=== PATIENT | male | born 1970 | race African-American/Black ===

== ENCOUNTER 2020-12-24 12:15 | Inpatient (IN) ==
[2020-12-24] MEDS ORDERED: SODIUM CHLORIDE 0.9% 1,000 ML IV STA (12:35)
[2020-12-24] MEDS ORDERED: HYDROmorphone 2 MG/1 ML VIAL IV STA (13:08)
[2020-12-24] MEDS ORDERED: ONDANSETRON 4 MG/2 ML VIAL IV ONE (13:08)
[2020-12-24] MEDS ORDERED: HYDROmorphone 2 MG/1 ML VIAL ONE (13:09)
[2020-12-24] MEDS ORDERED: ONDANSETRON 4 MG/2 ML VIAL ONE (13:09)
[2020-12-24] MEDS ORDERED: ONDANSETRON 4 MG/2 ML VIAL IV PRN (13:31)
[2020-12-24] MEDS ORDERED: ACETAMINOPHEN 325 MG TABLET PO PRN (13:31)
[2020-12-24] MEDS ORDERED: ALBUTEROL/IPRATROPIUM 3 ML NEB RESP TX PRN (13:31)
[2020-12-24] MEDS ORDERED: SODIUM CHLORIDE 0.9% 1,000 ML IV ONE (13:38)
[2020-12-24] MEDS ORDERED: DEXTROSE 50% 25 GM/50 ML VIAL IV PRN (13:40)
[2020-12-24] MEDS ORDERED: GLUCAGON 1 MG VIAL IM PRN (13:40)
[2020-12-24] MEDS ORDERED: LACTATED RINGERS 1,000 ML IV SCH (14:00)
[2020-12-24] MEDS ORDERED: KETOROLAC 30 MG/1 ML VIAL IV PRN (14:37)
[2020-12-24] MEDS: SODIUM CHLORIDE 0.9% 1,000 ML IV SCH (16:08)
[2020-12-24] MEDS: HYDROmorphone 2 MG/1 ML VIAL IV PRN ×2 (16:08→20:16)
[2020-12-24 16:15] LABS: Albumin 3.3 G/DL (3.4-5.0); Bilirubin,Total 0.4 MG/DL (0.2-1.0); Osmolality,Calculated 278.1 MOS/KG (273-304); Total Protein 8.4 G/DL (6.4-8.2)
[2020-12-24] MEDS: ERTAPENEM 1,000 MG in SODIUM CHLORIDE 0.9% 100 ML IV SCH (18:19)
[2020-12-24] MEDS: INSULIN LISPRO 100 UNIT/ML SUBCUT SCH (18:24)
[2020-12-25] MEDS: INSULIN LISPRO 100 UNIT/ML SUBCUT SCH ×6 (01:24→21:08)
[2020-12-25] MEDS: SODIUM CHLORIDE 0.9% 1,000 ML IV SCH ×3 (01:24→15:45)
[2020-12-25 05:52] LABS: Risk Ratio 6.22; VLDL CHOLESTEROL 38.2 MG/DL
[2020-12-25 05:53] LABS: Albumin 2.7 G/DL (3.4-5.0); Calcium 8.4 MG/DL (8.5-10.1); Osmolality,Calculated 281.8 MOS/KG (273-304); Potassium 4.4 MMOL/L (3.5-5.1); Total Protein 7.2 G/DL (6.4-8.2)
[2020-12-25 06:22] LABS: Basophils % 0.3 % (0.0-0.8); Eosinophils # 0.2 10*3/uL (0.0-0.87); Eosinophils % 1.9 % (0.00-10.9); Hematocrit 34.9 VOL% (42.0-52.0); Hemoglobin 10.2 GM/DL (14.0-18.0); Immature Granulocytes % 0.3 %; Immature Granulocytes Absolute 0.02 #; Lymphocytes # 1.6 10*3/uL (1.4-4.0); Lymphocytes % 20.9 % (21.2-54.2); Mean Corpuscular HGB Conc 29.2 GM/DL (32-36); Mean Corpuscular Volume 75.5 FL (87-102); Mean Platelet Volume 11.2 FL (9.6-12.0); Monocytes % 7.4 % (1.7-12.7); Neutrophils % 69.2 % (38.7-73.9); Platelet Count 273 T/CUMM (130-400); Red Blood Count 4.62 MC/CUMM (3.8-5.5); Red Cell Distribution Width 18.4 % (9.3-17.3); White Blood Count 7.7 T/CUMM (4-12)
[2020-12-25 07:59] LABS: Anisocytosis 1+; Hypochromasia Slight; Platelet Estimate Normal
[2020-12-25] MEDS: PANTOPRAZOLE 40 MG VIAL IV SCH (09:21)
[2020-12-25] MEDS: HYDROmorphone 2 MG/1 ML VIAL IV PRN ×3 (10:01→21:13)
[2020-12-25] MEDS: ERTAPENEM 1,000 MG in SODIUM CHLORIDE 0.9% 100 ML IV SCH (17:20)
[2020-12-25] MEDS: GABAPENTIN 600 MG TABLET PO SCH (21:08)
[2020-12-26] MEDS: SODIUM CHLORIDE 0.9% 1,000 ML IV SCH ×3 (00:20→15:51)
[2020-12-26 06:58] LABS: Calcium 8.3 MG/DL (8.5-10.1); Osmolality,Calculated 268.4 MOS/KG (273-304); Potassium 4.1 MMOL/L (3.5-5.1)
[2020-12-26 07:27] LABS: Basophils % 0.3 % (0.0-0.8); Eosinophils # 0.2 10*3/uL (0.0-0.87); Eosinophils % 2.9 % (0.00-10.9); Hematocrit 32.8 VOL% (42.0-52.0); Hemoglobin 9.9 GM/DL (14.0-18.0); Immature Granulocytes % 0.3 %; Immature Granulocytes Absolute 0.02 #; Lymphocytes # 1.7 10*3/uL (1.4-4.0); Lymphocytes % 23.8 % (21.2-54.2); Mean Corpuscular HGB Conc 30.2 GM/DL (32-36); Mean Corpuscular Volume 75.1 FL (87-102); Mean Platelet Volume 11.5 FL (9.6-12.0); Monocytes % 6.9 % (1.7-12.7); Neutrophils % 65.8 % (38.7-73.9); Platelet Count 275 T/CUMM (130-400); Red Blood Count 4.37 MC/CUMM (3.8-5.5); White Blood Count 7.2 T/CUMM (4-12)
[2020-12-26] MEDS: INSULIN LISPRO 100 UNIT/ML SUBCUT SCH ×4 (08:18→21:36)
[2020-12-26] MEDS: ATORVASTATIN 10 MG TABLET PO SCH (08:18)
[2020-12-26] MEDS: PANTOPRAZOLE 40 MG VIAL IV SCH (08:18)
[2020-12-26] MEDS: HYDROmorphone 2 MG/1 ML VIAL IV PRN ×3 (08:19→21:36)
[2020-12-26] MEDS: ERTAPENEM 1,000 MG in SODIUM CHLORIDE 0.9% 100 ML IV SCH (16:54)
[2020-12-26] MEDS: GABAPENTIN 600 MG TABLET PO SCH (21:34)
[2020-12-27] MEDS: SODIUM CHLORIDE 0.9% 1,000 ML IV SCH ×5 (00:39→15:39)
[2020-12-27] MEDS: HYDROmorphone 2 MG/1 ML VIAL IV PRN ×7 (00:40→20:17)
[2020-12-27 05:26] LABS: % Iron Saturation 9.5 % (18-50); Calcium 8.3 MG/DL (8.5-10.1); Ferritin 36.2 ng/ml (26-388); Osmolality,Calculated 271.8 MOS/KG (273-304); Potassium 4.1 MMOL/L (3.5-5.1)
[2020-12-27 05:31] LABS: Basophils % 0.3 % (0.0-0.8); Eosinophils # 0.2 10*3/uL (0.0-0.87); Eosinophils % 3.1 % (0.00-10.9); Hematocrit 34.1 VOL% (42.0-52.0); Hemoglobin 9.9 GM/DL (14.0-18.0); Immature Granulocytes % 0.3 %; Immature Granulocytes Absolute 0.02 #; Lymphocytes # 1.8 10*3/uL (1.4-4.0); Lymphocytes % 28.8 % (21.2-54.2); Mean Corpuscular Volume 75.9 FL (87-102); Mean Platelet Volume 11.7 FL (9.6-12.0); Monocytes % 8.7 % (1.7-12.7); Neutrophils % 58.8 % (38.7-73.9); Platelet Count 288 T/CUMM (130-400); Red Blood Count 4.49 MC/CUMM (3.8-5.5); Red Cell Distribution Width 17.7 % (9.3-17.3); White Blood Count 6.2 T/CUMM (4-12)
[2020-12-27] MEDS: ATORVASTATIN 10 MG TABLET PO SCH (08:38)
[2020-12-27] MEDS: PANTOPRAZOLE 40 MG VIAL IV SCH (08:38)
[2020-12-27] MEDS: INSULIN LISPRO 100 UNIT/ML SUBCUT SCH ×4 (08:48→20:17)
[2020-12-27] MEDS: ERTAPENEM 1,000 MG in SODIUM CHLORIDE 0.9% 100 ML IV SCH (17:22)
[2020-12-27] MEDS: GABAPENTIN 600 MG TABLET PO SCH (20:16)
[2020-12-27] MEDS: FERROUS SULFATE 325 MG TABLET PO SCH (20:17)
[2020-12-28] MEDS: HYDROmorphone 2 MG/1 ML VIAL IV PRN ×2 (00:15→03:20)
[2020-12-28 05:56] LABS: Calcium 8.5 MG/DL (8.5-10.1)
[2020-12-28 06:14] LABS: Basophils % 0.5 % (0.0-0.8); Eosinophils # 0.2 10*3/uL (0.0-0.87); Hematocrit 34.4 VOL% (42.0-52.0); Hemoglobin 10.2 GM/DL (14.0-18.0); Immature Granulocytes % 0.5 %; Immature Granulocytes Absolute 0.03 #; Lymphocytes # 1.5 10*3/uL (1.4-4.0); Lymphocytes % 24.1 % (21.2-54.2); Mean Corpuscular HGB Conc 29.7 GM/DL (32-36); Mean Corpuscular Volume 76.1 FL (87-102); Mean Platelet Volume 11.8 FL (9.6-12.0); Monocytes % 7.5 % (1.7-12.7); Neutrophils % 64.4 % (38.7-73.9); Platelet Count 299 T/CUMM (130-400); Red Blood Count 4.52 MC/CUMM (3.8-5.5); Red Cell Distribution Width 17.3 % (9.3-17.3); White Blood Count 6.4 T/CUMM (4-12)
[2020-12-28] MEDS: PANTOPRAZOLE 40 MG VIAL IV SCH (09:13)
[2020-12-28] MEDS: ATORVASTATIN 10 MG TABLET PO SCH (09:13)
[2020-12-28] MEDS: INSULIN LISPRO 100 UNIT/ML SUBCUT SCH ×2 (09:13→12:49)
[2020-12-28] MEDS: FERROUS SULFATE 325 MG TABLET PO SCH (09:13)
[2020-12-28 12:54] VITALS: BP 138/87
[2020-12-29] MEDS ORDERED: PANTOPRAZOLE 40 MG TABLET PO SCH (06:30)
== END 2020-12-28 14:12 | disposition home or self-care (01) | DRG 392 ==
LOC: N.ED 12:15 → N.EDINP 13:31 → N.4E 14:50
PROVIDERS: ADMIT Student in an Organized Health Care Education/Training Program; ATTEND Student in an Organized Health Care Education/Training Program

== ENCOUNTER 2020-12-30 17:40 | Inpatient (IN) ==
[2020-12-30] MEDS ORDERED: ONDANSETRON 4 MG/2 ML VIAL IV STA (18:30)
[2020-12-30] MEDS ORDERED: MORPHINE 4 MG/1 ML VIAL IV STA (18:30)
[2020-12-30] MEDS ORDERED: SODIUM CHLORIDE 0.9% 1,000 ML IV STA (18:30)
[2020-12-30 19:00] LABS: Alanine Aminotransferase 23 U/L (16-61); Albumin 3.2 G/DL (3.4-5.0); Alkaline Phosphatase 59 U/L (45-117); Amylase 55 U/L (25-115); Aspartate Amino Transferase 20 U/L (0-37); Bilirubin,Total < 0.39 MG/DL (0.2-1.0); Blood Urea Nitrogen 8 MG/DL (7-18); Calcium 9.4 MG/DL (8.5-10.1); Carbon Dioxide 30 MMOL/L (21-32); Estimated Glom Filtration Rate 124 ML/MIN; Glucose 261 MG/DL (74-106); Osmolality,Calculated 281.7 MOS/KG (273-304); Potassium 4.5 MMOL/L (3.5-5.1); Sodium 138 MMOL/L (136-145); Total Protein 8.2 G/DL (6.4-8.2)
[2020-12-30 19:13] LABS: Basophils % 0.3 % (0.0-0.8); Eosinophils # 0.1 10*3/uL (0.0-0.87); Eosinophils % 0.8 % (0.00-10.9); Hematocrit 39.4 VOL% (42.0-52.0); Immature Granulocytes % 0.6 %; Immature Granulocytes Absolute 0.06 #; Lymphocytes # 1.6 10*3/uL (1.4-4.0); Lymphocytes % 14.9 % (21.2-54.2); Mean Corpuscular HGB Conc 29.4 GM/DL (32-36); Mean Platelet Volume 11.5 FL (9.6-12.0); Neutrophils % 78.4 % (38.7-73.9); Platelet Count 357 T/CUMM (130-400); Red Blood Count 5.25 MC/CUMM (3.8-5.5); Red Cell Distribution Width 17.8 % (9.3-17.3); White Blood Count 10.5 T/CUMM (4-12)
[2020-12-30 19:21] LABS: Hemoglobin 11.6 GM/DL (14.0-18.0)
[2020-12-30] MEDS ORDERED: LEVOFLOXACIN INJ 750 MG/150 ML PREMIX IV SCH (21:00)
[2020-12-30] MEDS: metroNIDAZOLE INJ 500 MG/100 ML PREMIX IV SCH (21:10)
[2020-12-30] MEDS: SODIUM CHLORIDE 0.45% 1,000 ML IV SCH (22:18)
[2020-12-30] MEDS: MORPHINE 4 MG/1 ML VIAL IV PRN (22:46)
[2020-12-31] MEDS: MORPHINE 4 MG/1 ML VIAL IV PRN (03:15)
[2020-12-31] MEDS: metroNIDAZOLE INJ 500 MG/100 ML PREMIX IV SCH ×3 (04:57→20:27)
[2020-12-31] MEDS: SODIUM CHLORIDE 0.45% 1,000 ML IV SCH ×4 (04:59→21:37)
[2020-12-31] MEDS: PANTOPRAZOLE 40 MG VIAL IV SCH (08:30)
[2020-12-31] MEDS: HYDROmorphone 2 MG/1 ML VIAL IV PRN ×4 (08:30→20:25)
[2020-12-31] MEDS ORDERED: PANTOPRAZOLE 40 MG TABLET PO SCH (09:00)
[2020-12-31] MEDS: CIPROFLOXACIN INJ 400 MG/200 ML PREMIX IV SCH ×2 (09:19→22:11)
[2020-12-31] MEDS: LACTATED RINGERS 1,000 ML IV SCH (10:05)
[2020-12-31] MEDS ORDERED: LIDOCAINE 2% 5 ML VIAL ONE (10:44)
[2020-12-31] MEDS ORDERED: propofoL 200 MG/20 ML VIAL IV ONE ×2 (10:44)
[2020-12-31 10:46] LABS: INR 1.1; PT Patient Result 11.9 SECS (10.5-12.0)
[2020-12-31] MEDS ORDERED: GLUCAGON 1 MG VIAL IM PRN (17:31)
[2020-12-31] MEDS ORDERED: DEXTROSE 50% 25 GM/50 ML VIAL IV PRN (17:31)
[2020-12-31] MEDS: ONDANSETRON 4 MG/2 ML VIAL IV PRN (22:10)
[2021-01-01] MEDS: HYDROmorphone 2 MG/1 ML VIAL IV PRN ×7 (00:17→22:10)
[2021-01-01] MEDS: metroNIDAZOLE INJ 500 MG/100 ML PREMIX IV SCH ×3 (04:25→20:22)
[2021-01-01] MEDS: SODIUM CHLORIDE 0.45% 1,000 ML IV SCH ×3 (06:25→20:22)
[2021-01-01] MEDS: PANTOPRAZOLE 40 MG VIAL IV SCH (09:04)
[2021-01-01] MEDS ORDERED: DOCUSATE SODIUM 100 MG CAPSULE PO PRN (09:52)
[2021-01-01] MEDS: ONDANSETRON 4 MG/2 ML VIAL IV PRN ×2 (10:22→17:14)
[2021-01-01] MEDS: CIPROFLOXACIN INJ 400 MG/200 ML PREMIX IV SCH ×2 (10:23→22:11)
[2021-01-01] MEDS: LACTATED RINGERS 1,000 ML IV SCH (13:54)
[2021-01-01] MEDS: PROMETHAZINE 25 MG/1 ML VIAL IM PRN (20:15)
[2021-01-01] MEDS: ZALEPLON 5 MG CAPSULE PO PRN (20:16)
[2021-01-01] MEDS: DOCUSATE SODIUM 100 MG CAPSULE PO SCH (20:16)
[2021-01-02] MEDS: HYDROmorphone 2 MG/1 ML VIAL IV PRN ×8 (01:01→22:16)
[2021-01-02] MEDS: SODIUM CHLORIDE 0.45% 1,000 ML IV SCH ×5 (03:54→23:50)
[2021-01-02] MEDS: metroNIDAZOLE INJ 500 MG/100 ML PREMIX IV SCH ×3 (04:05→20:32)
[2021-01-02 06:39] LABS: Basophils % 0.5 % (0.0-0.8); Eosinophils # 0.1 10*3/uL (0.0-0.87); Eosinophils % 1.7 % (0.00-10.9); Hematocrit 33.6 VOL% (42.0-52.0); Immature Granulocytes % 0.3 %; Immature Granulocytes Absolute 0.02 #; Lymphocytes # 1.3 10*3/uL (1.4-4.0); Lymphocytes % 22.8 % (21.2-54.2); Mean Corpuscular HGB Conc 29.8 GM/DL (32-36); Mean Corpuscular Volume 75.5 FL (87-102); Mean Platelet Volume 11.6 FL (9.6-12.0); Monocytes % 9.6 % (1.7-12.7); Neutrophils % 65.1 % (38.7-73.9); Platelet Count 295 T/CUMM (130-400); Red Blood Count 4.45 MC/CUMM (3.8-5.5); Red Cell Distribution Width 17.8 % (9.3-17.3); White Blood Count 5.8 T/CUMM (4-12)
[2021-01-02 07:02] LABS: Calcium 8.4 MG/DL (8.5-10.1); Osmolality,Calculated 275.7 MOS/KG (273-304); Potassium 3.6 MMOL/L (3.5-5.1)
[2021-01-02] MEDS: DOCUSATE SODIUM 100 MG CAPSULE PO SCH ×2 (08:05→20:32)
[2021-01-02] MEDS: PANTOPRAZOLE 40 MG VIAL IV SCH (08:05)
[2021-01-02] MEDS: CIPROFLOXACIN INJ 400 MG/200 ML PREMIX IV SCH ×2 (09:32→22:16)
[2021-01-02] MEDS: PROMETHAZINE 25 MG/1 ML VIAL IM PRN (20:31)
[2021-01-02] MEDS: ZALEPLON 5 MG CAPSULE PO PRN (20:32)
[2021-01-03] MEDS: HYDROmorphone 2 MG/1 ML VIAL IV PRN ×2 (04:05→06:03)
[2021-01-03] MEDS: metroNIDAZOLE INJ 500 MG/100 ML PREMIX IV SCH ×2 (04:09→18:18)
[2021-01-03] MEDS: SODIUM CHLORIDE 0.45% 1,000 ML IV SCH ×2 (06:59→14:16)
[2021-01-03] MEDS ORDERED: ONDANSETRON 4 MG/2 ML VIAL ONE ×3 (07:53→11:33)
[2021-01-03] MEDS ORDERED: DEXAMETHASONE 4 MG/1 ML VIAL ONE (07:53)
[2021-01-03] MEDS ORDERED: fentaNYL 100 MCG/2 ML VIAL ONE ×2 (07:53→08:56)
[2021-01-03] MEDS ORDERED: MIDAZOLAM 2 MG/2 ML VIAL ONE (07:53)
[2021-01-03] MEDS ORDERED: LIDOCAINE 1% 5 ML VIAL ONE (07:53)
[2021-01-03] MEDS ORDERED: ROPIVACAINE 0.5% 30 ML VIAL ONE (07:53)
[2021-01-03] MEDS: DOCUSATE SODIUM 100 MG CAPSULE PO SCH ×2 (08:10→20:36)
[2021-01-03] MEDS: PANTOPRAZOLE 40 MG VIAL IV SCH (08:10)
[2021-01-03] MEDS ORDERED: LIDOCAINE 2% 5 ML VIAL ONE (08:56)
[2021-01-03] MEDS ORDERED: SEVOFLURANE 1 UNIT/15 MINUTE INH ONE (08:56)
[2021-01-03] MEDS ORDERED: propofoL 200 MG/20 ML VIAL IV ONE (08:56)
[2021-01-03] MEDS ORDERED: ROCURONIUM 50 MG/5 ML VIAL IV ONE ×3 (08:56→11:15)
[2021-01-03] MEDS ORDERED: SUCCINYLCHOLINE 200 MG/10 ML VIAL ONE (09:07)
[2021-01-03] MEDS ORDERED: ERTAPENEM 1,000 MG VIAL ONE (09:42)
[2021-01-03] MEDS ORDERED: PHENYLEPHRINE 10 MG/1 ML VIAL IV ONE ×2 (09:47→10:17)
[2021-01-03] MEDS ORDERED: KETOROLAC 30 MG/1 ML VIAL ONE (10:05)
[2021-01-03] MEDS ORDERED: DESFLURANE 1 UNIT/15 MINUTE INH ONE (10:06)
[2021-01-03] MEDS ORDERED: SODIUM CHLORIDE 0.9% 250 ML IV ONE (10:19)
[2021-01-03] MEDS ORDERED: LACTATED RINGERS 2,000 ML IV ONE (10:19)
[2021-01-03 11:33] LABS: Bilirubin,Urine Negative (Negative); Blood, Urine Negative (Negative); Glucose,Urine (UA) Negative (Negative); Ketones,Urine Negative (Negative); Nitrite,Urine Negative (Negative); Protein,Urine Negative; RBC,Urine 2 /HPF (0-4); Urine Appearance CLEAR (Clear); Urine Color Yellow (Yellow); Urine Specific Gravity 1.013 (1.001-1.035); Urine Urobilinogen < 2.0 EU/DL (0.2-1.0)
[2021-01-03 11:34] LABS: Mucus,Urine Occasional /LPF (Occasional)
[2021-01-03] MEDS ORDERED: NALOXONE 0.4 MG/ML VIAL IV PRN (12:17)
[2021-01-03] MEDS ORDERED: SUGAMMADEX 200 MG/2 ML VIAL IV ONE (12:23)
[2021-01-03] MEDS ORDERED: HYDROmorphone 2 MG/1 ML VIAL IV PRN (12:47)
[2021-01-03] MEDS ORDERED: HYDROmorphone 2 MG/1 ML VIAL ONE (12:49)
[2021-01-03] MEDS: HYDROmorphone PCA 30 MG/30 ML SYRINGE IV SCH (14:17)
[2021-01-03] MEDS: METHOCARBAMOL INJ 1,000 MG in SODIUM CHLORIDE 0.9% 100 ML IV SCH ×2 (14:44→22:08)
[2021-01-03] MEDS: CIPROFLOXACIN INJ 400 MG/200 ML PREMIX IV SCH (15:44)
[2021-01-03] MEDS ORDERED: LACTATED RINGERS 1,000 ML IV ONE (16:50)
[2021-01-03 17:29] LABS: Basophils % 0.3 % (0.0-0.8); Hematocrit 35.4 VOL% (42.0-52.0); Hemoglobin 10.9 GM/DL (14.0-18.0); Immature Granulocytes % 0.3 %; Immature Granulocytes Absolute 0.01 #; Lymphocytes # 0.4 10*3/uL (1.4-4.0); Lymphocytes % 11.2 % (21.2-54.2); Mean Corpuscular HGB Conc 30.8 GM/DL (32-36); Mean Corpuscular Volume 74.4 FL (87-102); Mean Platelet Volume 10.8 FL (9.6-12.0); Monocytes % 6.4 % (1.7-12.7); Neutrophils % 81.8 % (38.7-73.9); Platelet Count 278 T/CUMM (130-400); Red Blood Count 4.76 MC/CUMM (3.8-5.5); Red Cell Distribution Width 18.2 % (9.3-17.3); White Blood Count 3.7 T/CUMM (4-12)
[2021-01-03 17:55] LABS: Band Neutrophils 23 % (0-10); Lymphocytes 14 % (20-55); Metamyelocytes 5 %; Segmented Neutrophils 56 % (50-85); Total Cells Counted 100
[2021-01-03 17:56] LABS: Anisocytosis 2+; Atypical Lymphocytes Few; Hypochromasia 1+; Microcytosis 2+; Platelet Estimate Normal; Polychromasia 1+
[2021-01-03 17:57] LABS: Schistocytes Few
[2021-01-03] MEDS ORDERED: ALBUMIN 5% 25 GM/500 ML VIAL IV ONE (18:26)
[2021-01-03] MEDS: LACTATED RINGERS 1,000 ML IV SCH (18:58)
[2021-01-03] MEDS: ZALEPLON 5 MG CAPSULE PO PRN (22:13)
[2021-01-03] MEDS ORDERED: DEXTROSE 50% 25 GM/50 ML VIAL IV PRN (22:26)
[2021-01-03] MEDS ORDERED: GLUCAGON 1 MG VIAL IM PRN (22:26)
[2021-01-03] MEDS: INSULIN REGULAR 100 UNIT/ML SUBCUT SCH (22:42)
[2021-01-04] MEDS: metroNIDAZOLE INJ 500 MG/100 ML PREMIX IV SCH ×3 (00:01→16:44)
[2021-01-04] MEDS: LACTATED RINGERS 1,000 ML IV SCH ×4 (03:03→23:20)
[2021-01-04] MEDS: CIPROFLOXACIN INJ 400 MG/200 ML PREMIX IV SCH ×2 (03:03→15:19)
[2021-01-04 05:47] LABS: Basophils % 0.1 % (0.0-0.8); Hematocrit 31.1 VOL% (42.0-52.0); Hemoglobin 9.6 GM/DL (14.0-18.0); Immature Granulocytes % 0.3 %; Immature Granulocytes Absolute 0.03 #; Lymphocytes # 1.1 10*3/uL (1.4-4.0); Lymphocytes % 11.7 % (21.2-54.2); Mean Corpuscular HGB Conc 30.9 GM/DL (32-36); Mean Corpuscular Volume 74.4 FL (87-102); Mean Platelet Volume 11.3 FL (9.6-12.0); Monocytes % 5.7 % (1.7-12.7); Neutrophils % 82.2 % (38.7-73.9); Platelet Count 273 T/CUMM (130-400); Red Blood Count 4.18 MC/CUMM (3.8-5.5); Red Cell Distribution Width 18.5 % (9.3-17.3); White Blood Count 9.8 T/CUMM (4-12)
[2021-01-04] MEDS: METHOCARBAMOL INJ 1,000 MG in SODIUM CHLORIDE 0.9% 100 ML IV SCH ×3 (05:53→22:55)
[2021-01-04 05:59] LABS: Calcium 7.7 MG/DL (8.5-10.1); Osmolality,Calculated 276.4 MOS/KG (273-304); Potassium 4.1 MMOL/L (3.5-5.1)
[2021-01-04 06:17] LABS: Band Neutrophils 7 % (0-10); Hypochromasia 1+; Lymphocytes 18 % (20-55); Microcytosis 1+; Platelet Estimate Adequate; Segmented Neutrophils 72 % (50-85); Total Cells Counted 100
[2021-01-04] MEDS: INSULIN REGULAR 100 UNIT/ML SUBCUT SCH ×4 (07:49→20:48)
[2021-01-04] MEDS: ONDANSETRON 4 MG/2 ML VIAL IV PRN (08:29)
[2021-01-04] MEDS: PANTOPRAZOLE 40 MG VIAL IV SCH (09:16)
[2021-01-04] MEDS: POLYETHYLENE GLYCOL POWDER 17 GM PACK PO SCH (09:16)
[2021-01-04] MEDS: DOCUSATE SODIUM 100 MG CAPSULE PO SCH ×2 (09:16→20:22)
[2021-01-04 14:41] LABS: Calcium 7.8 MG/DL (8.5-10.1); Osmolality,Calculated 277.2 MOS/KG (273-304); Potassium 4.2 MMOL/L (3.5-5.1)
[2021-01-04] MEDS ORDERED: MAGNESIUM SULF RIDER 4 GM/100 ML PREMIX IV PRN (14:53)
[2021-01-04] MEDS ORDERED: MAGNESIUM SULF RIDER 2 GM/50 ML PREMIX IV PRN (14:53)
[2021-01-04] MEDS: ACETAMINOPHEN 325 MG TABLET PO PRN (20:22)
[2021-01-04] MEDS: ZALEPLON 5 MG CAPSULE PO PRN (20:48)
[2021-01-05] MEDS: metroNIDAZOLE INJ 500 MG/100 ML PREMIX IV SCH ×3 (00:15→18:37)
[2021-01-05] MEDS: LACTATED RINGERS 1,000 ML IV SCH ×5 (03:36→23:20)
[2021-01-05] MEDS: CIPROFLOXACIN INJ 400 MG/200 ML PREMIX IV SCH ×2 (03:36→16:50)
[2021-01-05] MEDS: PROMETHAZINE 25 MG/1 ML VIAL IM PRN (04:13)
[2021-01-05 05:16] LABS: Basophils % 0.1 % (0.0-0.8); Eosinophils % 0.1 % (0.00-10.9); Hematocrit 29.2 VOL% (42.0-52.0); Hemoglobin 8.8 GM/DL (14.0-18.0); Immature Granulocytes % 1.7 %; Immature Granulocytes Absolute 0.28 #; Lymphocytes # 1.1 10*3/uL (1.4-4.0); Lymphocytes % 6.5 % (21.2-54.2); Mean Corpuscular HGB Conc 30.1 GM/DL (32-36); Mean Corpuscular Volume 75.6 FL (87-102); Mean Platelet Volume 11.6 FL (9.6-12.0); Monocytes % 4.1 % (1.7-12.7); Neutrophils % 87.5 % (38.7-73.9); Platelet Count 266 T/CUMM (130-400); Red Blood Count 3.86 MC/CUMM (3.8-5.5); Red Cell Distribution Width 18.1 % (9.3-17.3); White Blood Count 16.4 T/CUMM (4-12)
[2021-01-05 05:34] LABS: Calcium 8.3 MG/DL (8.5-10.1); Osmolality,Calculated 275.2 MOS/KG (273-304); Potassium 3.9 MMOL/L (3.5-5.1)
[2021-01-05 05:37] LABS: Band Neutrophils 2 % (0-10); Lymphocytes 7 % (20-55); Segmented Neutrophils 88 % (50-85); Total Cells Counted 100
[2021-01-05 05:38] LABS: Hypochromasia 1+; Microcytosis Slight; Platelet Estimate Adequate
[2021-01-05] MEDS: METHOCARBAMOL INJ 1,000 MG in SODIUM CHLORIDE 0.9% 100 ML IV SCH ×3 (05:44→23:20)
[2021-01-05] MEDS ORDERED: SIMETHICONE CHEW 125 MG TABLET PO PRN (08:34)
[2021-01-05] MEDS: chlorproMAZINE 25 MG TABLET PO SCH ×3 (09:10→20:09)
[2021-01-05] MEDS: INSULIN REGULAR 100 UNIT/ML SUBCUT SCH ×4 (09:40→20:09)
[2021-01-05] MEDS: PANTOPRAZOLE 40 MG VIAL IV SCH (09:41)
[2021-01-05] MEDS: HYDROmorphone PCA 30 MG/30 ML SYRINGE IV SCH ×3 (10:40→12:17)
[2021-01-05] MEDS: DOCUSATE SODIUM 100 MG CAPSULE PO SCH ×2 (13:49→20:09)
[2021-01-05] MEDS: POLYETHYLENE GLYCOL POWDER 17 GM PACK PO SCH (13:50)
[2021-01-05] MEDS: ENOXAPARIN 40 MG/0.4 ML SYRINGE SUBCUT SCH (15:30)
[2021-01-05] MEDS ORDERED: METOPROLOL TARTRATE 5 MG/5 ML VIAL IV ONE (15:56)
[2021-01-05] MEDS: METOPROLOL TARTRATE 5 MG/5 ML VIAL IV PRN (16:54)
[2021-01-05] MEDS: ZALEPLON 5 MG CAPSULE PO PRN (20:09)
[2021-01-05] MEDS: ACETAMINOPHEN 325 MG TABLET PO PRN (20:09)
[2021-01-05] MEDS ORDERED: LACTATED RINGERS 1,000 ML IV ONE (21:00)
[2021-01-05 21:19] LABS: Basophils % 0.2 % (0.0-0.8); Eosinophils % 0.3 % (0.00-10.9); Hematocrit 27.6 VOL% (42.0-52.0); Hemoglobin 8.4 GM/DL (14.0-18.0); Lymphocytes # 1.2 10*3/uL (1.4-4.0); Lymphocytes % 7.9 % (21.2-54.2); Mean Corpuscular HGB Conc 30.4 GM/DL (32-36); Mean Corpuscular Volume 74.6 FL (87-102); Mean Platelet Volume 10.9 FL (9.6-12.0); Monocytes % 4.1 % (1.7-12.7); Neutrophils % 85.5 % (38.7-73.9); Platelet Count 239 T/CUMM (130-400); White Blood Count 14.7 T/CUMM (4-12)
[2021-01-05 21:44] LABS: Calcium 8.2 MG/DL (8.5-10.1); Osmolality,Calculated 271.4 MOS/KG (273-304); Potassium 3.9 MMOL/L (3.5-5.1)
[2021-01-05] MEDS ORDERED: SODIUM CHLORIDE 0.9% 1,000 ML IV PRN (22:10)
[2021-01-05] MEDS ORDERED: PHENOL 1.4% THROAT SPRAY 177 ML BOTTLE PO PRN (23:01)
[2021-01-06] MEDS ORDERED: ACETAMINOPHEN 325 MG TABLET PO ONE (00:38)
[2021-01-06] MEDS ORDERED: ACETAMINOPHEN 325 MG/10.15 ML UDCUP PO ONE (00:38)
[2021-01-06] MEDS: METOPROLOL TARTRATE 5 MG/5 ML VIAL IV PRN ×2 (00:49→18:49)
[2021-01-06] MEDS: metroNIDAZOLE INJ 500 MG/100 ML PREMIX IV SCH ×2 (00:55→09:56)
[2021-01-06] MEDS: LACTATED RINGERS 1,000 ML IV SCH ×4 (03:31→14:35)
[2021-01-06] MEDS ORDERED: IBUPROFEN 200 MG TABLET PO PRN (03:34)
[2021-01-06] MEDS: CIPROFLOXACIN INJ 400 MG/200 ML PREMIX IV SCH (04:14)
[2021-01-06] MEDS: METHOCARBAMOL INJ 1,000 MG in SODIUM CHLORIDE 0.9% 100 ML IV SCH ×3 (05:35→21:21)
[2021-01-06 07:56] LABS: Basophils % 0.2 % (0.0-0.8); Eosinophils # 0.1 10*3/uL (0.0-0.87); Eosinophils % 0.8 % (0.00-10.9); Hematocrit 31.1 VOL% (42.0-52.0); Hemoglobin 9.2 GM/DL (14.0-18.0); Immature Granulocytes % 0.8 %; Immature Granulocytes Absolute 0.13 #; Lymphocytes # 1.6 10*3/uL (1.4-4.0); Lymphocytes % 9.7 % (21.2-54.2); Mean Corpuscular HGB Conc 29.6 GM/DL (32-36); Mean Corpuscular Volume 77.8 FL (87-102); Mean Platelet Volume 11.5 FL (9.6-12.0); Monocytes % 4.6 % (1.7-12.7); Neutrophils % 83.9 % (38.7-73.9); Platelet Count 275 T/CUMM (130-400); Red Cell Distribution Width 18.4 % (9.3-17.3); White Blood Count 16.9 T/CUMM (4-12)
[2021-01-06 08:10] LABS: Calcium 8.2 MG/DL (8.5-10.1); Osmolality,Calculated 272.2 MOS/KG (273-304); Potassium 3.9 MMOL/L (3.5-5.1)
[2021-01-06 08:21] LABS: Hypochromasia 1+; Lymphocytes 6 % (20-55); Microcytosis 1+; Platelet Estimate Adequate; Segmented Neutrophils 89 % (50-85); Total Cells Counted 100
[2021-01-06] MEDS: PANTOPRAZOLE 40 MG VIAL IV SCH (09:56)
[2021-01-06] MEDS: INSULIN REGULAR 100 UNIT/ML SUBCUT SCH ×4 (09:57→21:19)
[2021-01-06] MEDS: POLYETHYLENE GLYCOL POWDER 17 GM PACK PO SCH (11:10)
[2021-01-06] MEDS: DOCUSATE SODIUM 100 MG CAPSULE PO SCH ×2 (11:10→21:20)
[2021-01-06] MEDS: chlorproMAZINE 25 MG TABLET PO SCH ×3 (11:11→21:20)
[2021-01-06] MEDS: MEROPENEM 500 MG in SODIUM CHLORIDE 0.9% 100 ML IV SCH ×3 (11:38→22:24)
[2021-01-06] MEDS: ENOXAPARIN 40 MG/0.4 ML SYRINGE SUBCUT SCH (14:24)
[2021-01-06] MEDS: HYDROmorphone PCA 30 MG/30 ML SYRINGE IV SCH (18:28)
[2021-01-06] MEDS: ZALEPLON 5 MG CAPSULE PO PRN (22:58)
[2021-01-07] MEDS: MEROPENEM 500 MG in SODIUM CHLORIDE 0.9% 100 ML IV SCH ×3 (03:54→20:29)
[2021-01-07] MEDS: METHOCARBAMOL INJ 1,000 MG in SODIUM CHLORIDE 0.9% 100 ML IV SCH ×3 (05:27→21:39)
[2021-01-07 06:28] LABS: Basophils % 0.3 % (0.0-0.8); Eosinophils # 0.1 10*3/uL (0.0-0.87); Eosinophils % 0.8 % (0.00-10.9); Hematocrit 29.6 VOL% (42.0-52.0); Hemoglobin 8.7 GM/DL (14.0-18.0); Immature Granulocytes % 0.6 %; Immature Granulocytes Absolute 0.08 #; Mean Corpuscular HGB Conc 29.4 GM/DL (32-36); Mean Corpuscular Volume 77.1 FL (87-102); Mean Platelet Volume 11.1 FL (9.6-12.0); Monocytes % 6.6 % (1.7-12.7); Neutrophils % 84.7 % (38.7-73.9); Platelet Count 325 T/CUMM (130-400); Red Blood Count 3.84 MC/CUMM (3.8-5.5); Red Cell Distribution Width 18.6 % (9.3-17.3); White Blood Count 14.3 T/CUMM (4-12)
[2021-01-07 06:44] LABS: Potassium 3.8 MMOL/L (3.5-5.1)
[2021-01-07] MEDS ORDERED: chlorproMAZINE 25 MG TABLET PO PRN (07:30)
[2021-01-07 07:38] LABS: Band Neutrophils 3 % (0-10); Lymphocytes 9 % (20-55); Platelet Estimate Normal; Polychromasia Slight; Segmented Neutrophils 82 % (50-85); Total Cells Counted 100
[2021-01-07 07:39] LABS: Anisocytosis Slight
[2021-01-07] MEDS: INSULIN REGULAR 100 UNIT/ML SUBCUT SCH ×4 (08:48→20:49)
[2021-01-07] MEDS: DOCUSATE SODIUM 100 MG CAPSULE PO SCH ×2 (10:44→20:55)
[2021-01-07] MEDS: POLYETHYLENE GLYCOL POWDER 17 GM PACK PO SCH (10:44)
[2021-01-07] MEDS: PANTOPRAZOLE 40 MG VIAL IV SCH (10:45)
[2021-01-07] MEDS: HYDROmorphone 2 MG/1 ML VIAL IV PRN ×2 (12:30→22:36)
[2021-01-07] MEDS: LACTATED RINGERS 1,000 ML IV SCH (13:18)
[2021-01-07] MEDS: KETOROLAC 15 MG/1 ML VIAL IV SCH ×3 (13:35→23:06)
[2021-01-07] MEDS: METOPROLOL TARTRATE 5 MG/5 ML VIAL IV SCH ×3 (13:44→23:08)
[2021-01-07 15:09] LABS: % Iron Saturation 4.4 % (18-50); Ferritin 136.9 ng/ml (26-388)
[2021-01-07 15:11] LABS: Folate 11.37 NG/ML (5.38-24.0)
[2021-01-07] MEDS: ENOXAPARIN 40 MG/0.4 ML SYRINGE SUBCUT SCH (16:10)
[2021-01-08] MEDS: LACTATED RINGERS 1,000 ML IV SCH ×5 (00:03→21:10)
[2021-01-08 01:29] LABS: Basophils % 0.2 % (0.0-0.8); Eosinophils # 0.1 10*3/uL (0.0-0.87); Eosinophils % 1.1 % (0.00-10.9); Hematocrit 28.6 VOL% (42.0-52.0); Hemoglobin 8.5 GM/DL (14.0-18.0); Immature Granulocytes Absolute 0.12 #; Lymphocytes # 1.1 10*3/uL (1.4-4.0); Mean Corpuscular HGB Conc 29.7 GM/DL (32-36); Mean Corpuscular Volume 76.9 FL (87-102); Mean Platelet Volume 10.3 FL (9.6-12.0); Monocytes % 7.1 % (1.7-12.7); Neutrophils % 81.6 % (38.7-73.9); Platelet Count 320 T/CUMM (130-400); Red Blood Count 3.72 MC/CUMM (3.8-5.5); Red Cell Distribution Width 18.7 % (9.3-17.3); White Blood Count 12.2 T/CUMM (4-12)
[2021-01-08] MEDS: MEROPENEM 500 MG in SODIUM CHLORIDE 0.9% 100 ML IV SCH ×4 (01:33→21:07)
[2021-01-08 01:44] LABS: Osmolality,Calculated 277.8 MOS/KG (273-304); Potassium 3.5 MMOL/L (3.5-5.1)
[2021-01-08] MEDS: HYDROmorphone 2 MG/1 ML VIAL IV PRN ×6 (02:18→23:42)
[2021-01-08] MEDS: ACETAMINOPHEN 325 MG TABLET PO PRN (05:50)
[2021-01-08] MEDS: METHOCARBAMOL INJ 1,000 MG in SODIUM CHLORIDE 0.9% 100 ML IV SCH ×3 (05:50→22:06)
[2021-01-08] MEDS: KETOROLAC 15 MG/1 ML VIAL IV SCH ×4 (05:50→23:41)
[2021-01-08] MEDS: METOPROLOL TARTRATE 5 MG/5 ML VIAL IV SCH ×2 (05:52→12:30)
[2021-01-08 07:24] LABS: Blood, Urine Negative (Negative); Glucose,Urine (UA) 50 mg/dL (Negative); Ketones,Urine 20 mg/dL (Negative); Mucus,Urine Many /LPF (Occasional); Nitrite,Urine Negative (Negative); Protein,Urine 30 MG/DL; RBC,Urine 3 /HPF (0-4); Urine Appearance CLEAR (Clear); Urine Color Amber (Yellow); Urine Specific Gravity 1.039 (1.001-1.035)
[2021-01-08 07:42] LABS: Bilirubin,Urine Small mg/dL (Negative)
[2021-01-08] MEDS: PANTOPRAZOLE 40 MG VIAL IV SCH (09:32)
[2021-01-08] MEDS: DOCUSATE SODIUM 100 MG CAPSULE PO SCH ×2 (09:33→21:07)
[2021-01-08] MEDS: INSULIN REGULAR 100 UNIT/ML SUBCUT SCH ×4 (09:33→21:08)
[2021-01-08] MEDS: POLYETHYLENE GLYCOL POWDER 17 GM PACK PO SCH (09:37)
[2021-01-08] MEDS: ENOXAPARIN 40 MG/0.4 ML SYRINGE SUBCUT SCH (14:02)
[2021-01-08] MEDS: FERROUS SULFATE 325 MG TABLET PO SCH (14:02)
[2021-01-08] MEDS: METOPROLOL TARTRATE 25 MG TABLET PO SCH (21:07)
[2021-01-08] MEDS: INSULIN GLARGINE 100 UNIT/ML SUBCUT SCH (21:08)
[2021-01-09] MEDS: MEROPENEM 500 MG in SODIUM CHLORIDE 0.9% 100 ML IV SCH ×4 (01:20→20:13)
[2021-01-09] MEDS: KETOROLAC 15 MG/1 ML VIAL IV SCH ×4 (05:16→23:54)
[2021-01-09] MEDS: METHOCARBAMOL INJ 1,000 MG in SODIUM CHLORIDE 0.9% 100 ML IV SCH ×3 (05:17→23:54)
[2021-01-09] MEDS: HYDROmorphone 2 MG/1 ML VIAL IV PRN ×5 (05:21→20:14)
[2021-01-09] MEDS: METOPROLOL TARTRATE 25 MG TABLET PO SCH ×2 (09:37→20:13)
[2021-01-09] MEDS: FERROUS SULFATE 325 MG TABLET PO SCH (09:37)
[2021-01-09] MEDS: DOCUSATE SODIUM 100 MG CAPSULE PO SCH ×2 (09:37→20:13)
[2021-01-09] MEDS: INSULIN REGULAR 100 UNIT/ML SUBCUT SCH ×4 (11:10→21:41)
[2021-01-09] MEDS: PANTOPRAZOLE 40 MG VIAL IV SCH (11:11)
[2021-01-09] MEDS: POLYETHYLENE GLYCOL POWDER 17 GM PACK PO SCH (11:11)
[2021-01-09] MEDS: ENOXAPARIN 40 MG/0.4 ML SYRINGE SUBCUT SCH (17:32)
[2021-01-09] MEDS: LACTATED RINGERS 1,000 ML IV SCH (21:32)
[2021-01-09] MEDS: INSULIN GLARGINE 100 UNIT/ML SUBCUT SCH (21:42)
[2021-01-10] MEDS: MEROPENEM 500 MG in SODIUM CHLORIDE 0.9% 100 ML IV SCH ×5 (01:36→22:22)
[2021-01-10] MEDS: HYDROmorphone 2 MG/1 ML VIAL IV PRN (01:37)
[2021-01-10] MEDS: KETOROLAC 15 MG/1 ML VIAL IV SCH ×4 (05:46→23:01)
[2021-01-10] MEDS: INSULIN REGULAR 100 UNIT/ML SUBCUT SCH ×4 (08:49→20:32)
[2021-01-10] MEDS: PANTOPRAZOLE 40 MG VIAL IV SCH (08:49)
[2021-01-10] MEDS: METOPROLOL TARTRATE 50 MG TABLET PO SCH ×3 (08:50→20:31)
[2021-01-10] MEDS: POLYETHYLENE GLYCOL POWDER 17 GM PACK PO SCH (08:50)
[2021-01-10] MEDS: DOCUSATE SODIUM 100 MG CAPSULE PO SCH ×3 (08:50→20:31)
[2021-01-10] MEDS: FERROUS SULFATE 325 MG TABLET PO SCH (08:50)
[2021-01-10 09:09] LABS: Basophils % 0.3 % (0.0-0.8); Eosinophils # 0.3 10*3/uL (0.0-0.87); Hematocrit 29.5 VOL% (42.0-52.0); Hemoglobin 8.7 GM/DL (14.0-18.0); Immature Granulocytes % 0.8 %; Immature Granulocytes Absolute 0.11 #; Lymphocytes # 1.2 10*3/uL (1.4-4.0); Lymphocytes % 9.4 % (21.2-54.2); Mean Corpuscular HGB Conc 29.5 GM/DL (32-36); Mean Platelet Volume 10.2 FL (9.6-12.0); Monocytes % 5.2 % (1.7-12.7); Neutrophils % 82.3 % (38.7-73.9); Platelet Count 410 T/CUMM (130-400); Red Blood Count 3.83 MC/CUMM (3.8-5.5); Red Cell Distribution Width 18.9 % (9.3-17.3); White Blood Count 13.1 T/CUMM (4-12)
[2021-01-10 09:27] LABS: Bilirubin,Total 0.5 MG/DL (0.2-1.0); Calcium 7.9 MG/DL (8.5-10.1); Osmolality,Calculated 271.2 MOS/KG (273-304); Potassium 3.3 MMOL/L (3.5-5.1); Total Protein 6.6 G/DL (6.4-8.2)
[2021-01-10 09:51] LABS: Band Neutrophils 1 % (0-10); Eosinophils 2 % (0-10); Hypochromasia 1+; Lymphocytes 10 % (20-55); Segmented Neutrophils 84 % (50-85); Total Cells Counted 100
[2021-01-10 09:53] LABS: Microcytosis 1+; Platelet Estimate Increased
[2021-01-10] MEDS ORDERED: POTASSIUM CHLORIDE 20 MEQ TABLET PO ONE (10:01)
[2021-01-10 10:23] LABS: Bilirubin,Urine Small mg/dL (Negative); Blood, Urine Negative (Negative); Glucose,Urine (UA) >=500 mg/dL (Negative); Ketones,Urine Negative (Negative); Mucus,Urine Many /LPF (Occasional); Nitrite,Urine Negative (Negative); Protein,Urine 100 MG/DL; RBC,Urine <1 /HPF (0-4); Urine Appearance CLEAR (Clear); Urine Color Amber (Yellow)
[2021-01-10] MEDS: METHOCARBAMOL INJ 1,000 MG in SODIUM CHLORIDE 0.9% 100 ML IV SCH (10:40)
[2021-01-10] MEDS ORDERED: LACTATED RINGERS 1,000 ML IV ONE (10:50)
[2021-01-10] MEDS ORDERED: LORazepam 0.5 MG TABLET PO ONE (16:06)
[2021-01-10] MEDS: ENOXAPARIN 40 MG/0.4 ML SYRINGE SUBCUT SCH (17:24)
[2021-01-10] MEDS: ZALEPLON 5 MG CAPSULE PO PRN (20:15)
[2021-01-10] MEDS: INSULIN GLARGINE 100 UNIT/ML SUBCUT SCH (20:32)
[2021-01-10] MEDS: METOPROLOL TARTRATE 5 MG/5 ML VIAL IV PRN (23:08)
[2021-01-11 05:07] LABS: Basophils % 0.2 % (0.0-0.8); Eosinophils # 0.3 10*3/uL (0.0-0.87); Eosinophils % 2.1 % (0.00-10.9); Hematocrit 26.9 VOL% (42.0-52.0); Hemoglobin 8.2 GM/DL (14.0-18.0); Immature Granulocytes % 0.9 %; Immature Granulocytes Absolute 0.11 #; Lymphocytes # 1.5 10*3/uL (1.4-4.0); Lymphocytes % 11.8 % (21.2-54.2); Mean Corpuscular HGB Conc 30.5 GM/DL (32-36); Mean Corpuscular Volume 75.6 FL (87-102); Mean Platelet Volume 11.2 FL (9.6-12.0); Monocytes % 5.5 % (1.7-12.7); Neutrophils % 79.5 % (38.7-73.9); Platelet Count 465 T/CUMM (130-400); Red Blood Count 3.56 MC/CUMM (3.8-5.5); Red Cell Distribution Width 18.8 % (9.3-17.3); White Blood Count 12.5 T/CUMM (4-12)
[2021-01-11] MEDS: MEROPENEM 500 MG in SODIUM CHLORIDE 0.9% 100 ML IV SCH (05:17)
[2021-01-11] MEDS: KETOROLAC 15 MG/1 ML VIAL IV SCH ×3 (05:20→18:28)
[2021-01-11 05:30] LABS: Hypochromasia 1+; Microcytosis 1+; Platelet Estimate Adequate
[2021-01-11 05:33] LABS: Calcium 8.1 MG/DL (8.5-10.1); Osmolality,Calculated 276.8 MOS/KG (273-304); Potassium 3.8 MMOL/L (3.5-5.1)
[2021-01-11] MEDS: INSULIN REGULAR 100 UNIT/ML SUBCUT SCH ×3 (08:07→17:09)
[2021-01-11] MEDS ORDERED: CITALOPRAM 20 MG TABLET PO SCH (09:00)
[2021-01-11] MEDS ORDERED: ERTAPENEM 1,000 MG in SODIUM CHLORIDE 0.9% 100 ML IV SCH (09:30)
[2021-01-11] MEDS: FERROUS SULFATE 325 MG TABLET PO SCH (09:44)
[2021-01-11] MEDS: DOCUSATE SODIUM 100 MG CAPSULE PO SCH (09:44)
[2021-01-11] MEDS: PANTOPRAZOLE 40 MG VIAL IV SCH (09:45)
[2021-01-11] MEDS: POLYETHYLENE GLYCOL POWDER 17 GM PACK PO SCH (09:45)
[2021-01-11] MEDS: METOPROLOL TARTRATE 50 MG TABLET PO SCH (09:46)
[2021-01-11] MEDS: ENOXAPARIN 40 MG/0.4 ML SYRINGE SUBCUT SCH (17:09)
[2021-01-11 17:57] VITALS: BP 153/82
== END 2021-01-11 19:50 | disposition home health service (06) | DRG 330 ==
LOC: N.ED 17:40 → N.EDINP 20:40 → N.3E 22:07
PROVIDERS: ADMIT Student in an Organized Health Care Education/Training Program; ATTEND Student in an Organized Health Care Education/Training Program